=== PATIENT | male | born 1935 | race Caucasian/White ===

== ENCOUNTER 2016-11-18 19:35 | Inpatient (IN) | payer MEDICARE, OTHER ==
[~2016-11-18] VITALS: Ht 175.3 cm; Wt 106.4 kg
[2016-11-18] MEDS ORDERED: PLEASE ENTER ALLERGIES MC SCH ×2 (20:00)
[2016-11-18] MEDS ORDERED: SODIUM CHLORIDE 0.9% 1,000ML IVBOLUS ONE (20:00)
[2016-11-18] MEDS ORDERED: SODIUM CHLORIDE FLUSH 10ML SYR IVF ONE (20:00)
[2016-11-18] MEDS ORDERED: PLEASE ENTER HEIGHT AND WEIGHT MC SCH (20:00)
[2016-11-18] MEDS ORDERED: ONDANSETRON 2MG/ML, 2ML IVPush ONE (20:00)
[2016-11-18 20:02] LABS: HEMOGLOBIN 13.3 g/dL (13.7-18.0)
[2016-11-18 20:13] LABS: ASPARTATE AMINO TRANSFERASE 11 U/L (15-37); BLOOD UREA NITROGEN 27 mg/dL (7-18)
[2016-11-18 20:18] LABS: HEMATOCRIT 40.2 % (39.2-51.8)
[2016-11-18 20:21] LABS: IS PT STATUS REG ER OR PRE ER? YES
[2016-11-18] MEDS ORDERED: INSU100V5 SQ-INSULIN (20:31)
[2016-11-18] MEDS ORDERED: ASPI-515 PO (20:31)
[2016-11-18] MEDS ORDERED: CYAN500T42 PO (20:31)
[2016-11-18] MEDS ORDERED: METF-649 PO (20:31)
[2016-11-18] MEDS ORDERED: SIMV5TAB5 PO (20:31)
[2016-11-18] MEDS ORDERED: ONDANSETRON 2MG/ML, 2ML ONE (20:33)
[2016-11-18] MEDS ORDERED: OMNIPAQUE 350 MG/ML, 100ML BOTTLE ONE (21:00)
[2016-11-18] MEDS ORDERED: ONDANSETRON 2MG/ML, 2ML IVPush PRN (23:30)
[2016-11-18] MEDS ORDERED: DEXTROSE 4 GM TAB.CHEW PO PRN (23:30)
[2016-11-18] MEDS ORDERED: POLYETHYLENE GLYCOL 17 GM PACKET PO PRN (23:30)
[2016-11-18] MEDS ORDERED: ACETAMINOPHEN 325 MG TABLET PO PRN (23:30)
[2016-11-18] MEDS ORDERED: GLUCAGON 1 MG IM PRN (23:30)
[2016-11-18] MEDS ORDERED: BISACODYL 10 MG SUPP PR PRN (23:30)
[2016-11-18] MEDS ORDERED: DEXTROSE 50%, 50ML SYRINGE IVPush PRN (23:30)
[2016-11-19 00:29] VITALS: BP 155/81
[2016-11-19] MEDS: SODIUM CHLORIDE 0.9% 1,000 ML IV SCH ×2 (01:14→13:31)
[2016-11-19] MEDS: HEPARIN 5,000 UNITS/ML, 1ML SQ SCH ×3 (01:15→15:49)
[2016-11-19 06:39] LABS: HEMATOCRIT 38.2 % (39.2-51.8); HEMOGLOBIN 12.6 g/dL (13.7-18.0); WHITE BLOOD COUNT 12.1 x10^3/uL (3.4-10)
[2016-11-19 06:51] LABS: ASPARTATE AMINO TRANSFERASE 9 U/L (15-37); BLOOD UREA NITROGEN 24 mg/dL (7-18)
[2016-11-19 06:59] LABS: IS PT STATUS REG ER OR PRE ER? NO
[2016-11-19 07:43] VITALS: BP 167/92
[2016-11-19] MEDS: ASPIRIN 81 MG TABLET EC PO SCH (08:33)
[2016-11-19] MEDS: SENNA/DOCUSATE TABLET PO SCH (08:34)
[2016-11-19 08:39] VITALS: BP 165/87
[2016-11-19] MEDS ORDERED: SIMV80TA3 PO (08:54)
[2016-11-19] MEDS ORDERED: LISI1TAB5 PO (08:54)
[2016-11-19] MEDS ORDERED: INSU100C5 SQ-INSULIN (08:55)
[2016-11-19] MEDS ORDERED: SODIUM CHLORIDE FLUSH 10ML SYR IVF SCH (09:00)
[2016-11-19] MEDS ORDERED: SIMVASTATIN 5 MG TABLET PO SCH (09:00)
[2016-11-19] MEDS: ATENOLOL 50 MG TABLET PO SCH (10:59)
[2016-11-19] MEDS: LISINOPRIL 20 MG TABLET PO SCH (11:00)
[2016-11-19 11:03] VITALS: BP 122/68
[2016-11-19 13:08] LABS: IS PT STATUS REG ER OR PRE ER? NO
[2016-11-19] MEDS: INSULIN ASPART 100 UNITS/ML, PEN SQ-INSULIN SCH ×3 (13:31→21:22)
[2016-11-19 14:00] VITALS: BP 130/80
[2016-11-19] MEDS ORDERED: ALBUTEROL SULFATE 2.5 MG/3 ML ONE (16:09)
[2016-11-19] MEDS ORDERED: DEXTROSE 4 GM TAB.CHEW PO PRN (16:30)
[2016-11-19] MEDS ORDERED: GLUCAGON 1 MG IM PRN (16:30)
[2016-11-19] MEDS ORDERED: ACETAMINOPHEN 325 MG TABLET PO PRN (16:30)
[2016-11-19] MEDS ORDERED: DEXTROSE 50%, 50ML SYRINGE IVPush PRN (16:30)
[2016-11-19] MEDS ORDERED: BISACODYL 10 MG SUPP PR PRN (16:30)
[2016-11-19] MEDS ORDERED: ONDANSETRON 2MG/ML, 2ML IVPush PRN (16:30)
[2016-11-19] MEDS ORDERED: INSULIN DETEMIR 100 UNITS/ML, PEN SQ-INSULIN SCH (21:00)
[2016-11-19] MEDS: ATORVASTATIN 40 MG TABLET PO SCH (21:21)
[2016-11-19] MEDS: SODIUM CHLORIDE FLUSH 10ML SYR IVF SCH (21:22)
[2016-11-19 22:05] VITALS: BP 125/76
[2016-11-20 00:11] VITALS: BP 143/80
[2016-11-20] MEDS: HEPARIN 5,000 UNITS/ML, 1ML SQ SCH ×3 (00:12→16:39)
[2016-11-20 04:49] LABS: HEMATOCRIT 35.7 % (39.2-51.8); HEMOGLOBIN 11.7 g/dL (13.7-18.0); WHITE BLOOD COUNT 10.6 x10^3/uL (3.4-10)
[2016-11-20 05:08] LABS: ASPARTATE AMINO TRANSFERASE 7 U/L (15-37); BLOOD UREA NITROGEN 26 mg/dL (7-18)
[2016-11-20 08:30] VITALS: BP 116/78
[2016-11-20] MEDS: SODIUM CHLORIDE FLUSH 10ML SYR IVF SCH ×2 (09:00→21:00)
[2016-11-20] MEDS: SENNA/DOCUSATE TABLET PO SCH (09:00)
[2016-11-20] MEDS: ASPIRIN 81 MG TABLET EC PO SCH (09:17)
[2016-11-20] MEDS: ATENOLOL 50 MG TABLET PO SCH (09:17)
[2016-11-20] MEDS: LISINOPRIL 20 MG TABLET PO SCH (09:18)
[2016-11-20] MEDS: INSULIN ASPART 100 UNITS/ML, PEN SQ-INSULIN SCH ×4 (09:29→20:37)
[2016-11-20] MEDS: INSULIN DETEMIR 100 UNITS/ML, PEN SQ-INSULIN SCH ×2 (09:29→20:56)
[2016-11-20] MEDS ORDERED: FENTANYL PF 100 MCG/2ML ONE (13:23)
[2016-11-20] MEDS ORDERED: MIDAZOLAM 1 MG/ML, 5ML ONE (13:23)
[2016-11-20 13:25] VITALS: BP 123/75
[2016-11-20 20:28] VITALS: BP 107/69
[2016-11-20] MEDS: ATORVASTATIN 40 MG TABLET PO SCH (20:37)
[2016-11-21 00:29] VITALS: BP 112/70
[2016-11-21] MEDS: HEPARIN 5,000 UNITS/ML, 1ML SQ SCH ×4 (00:30→23:59)
[2016-11-21 05:10] LABS: HEMOGLOBIN 11.9 g/dL (13.7-18.0); WHITE BLOOD COUNT 9.4 x10^3/uL (3.4-10)
[2016-11-21 05:29] LABS: BLOOD UREA NITROGEN 28 mg/dL (7-18)
[2016-11-21 08:25] VITALS: BP 119/70
[2016-11-21] MEDS: ASPIRIN 81 MG TABLET EC PO SCH (08:28)
[2016-11-21] MEDS: LISINOPRIL 20 MG TABLET PO SCH (08:28)
[2016-11-21] MEDS: INSULIN DETEMIR 100 UNITS/ML, PEN SQ-INSULIN SCH ×2 (08:29→20:17)
[2016-11-21] MEDS: INSULIN ASPART 100 UNITS/ML, PEN SQ-INSULIN SCH ×4 (08:29→20:17)
[2016-11-21] MEDS: SODIUM CHLORIDE FLUSH 10ML SYR IVF SCH ×2 (08:29→20:17)
[2016-11-21] MEDS: SENNA/DOCUSATE TABLET PO SCH (08:30)
[2016-11-21] MEDS: ATENOLOL 50 MG TABLET PO SCH (08:30)
[2016-11-21 13:20] VITALS: BP 128/68
[2016-11-21] MEDS: ATORVASTATIN 40 MG TABLET PO SCH (20:17)
[2016-11-21 20:45] VITALS: BP 128/81
[2016-11-22 01:05] VITALS: BP 117/72
[2016-11-22] MEDS: ATENOLOL 50 MG TABLET PO SCH (06:00)
[2016-11-22] MEDS: HEPARIN 5,000 UNITS/ML, 1ML SQ SCH (07:30)
[2016-11-22 08:28] VITALS: BP 145/80
[2016-11-22] MEDS: SENNA/DOCUSATE TABLET PO SCH (09:00)
[2016-11-22] MEDS: LISINOPRIL 20 MG TABLET PO SCH (09:15)
[2016-11-22] MEDS: SODIUM CHLORIDE FLUSH 10ML SYR IVF SCH (09:15)
[2016-11-22] MEDS: ASPIRIN 81 MG TABLET EC PO SCH (09:15)
[2016-11-22] MEDS: INSULIN DETEMIR 100 UNITS/ML, PEN SQ-INSULIN SCH (09:16)
[2016-11-22] MEDS: INSULIN ASPART 100 UNITS/ML, PEN SQ-INSULIN SCH ×2 (09:16→11:00)
[2016-11-22] MEDS ORDERED: ASPI-650 PO (11:37)
[2016-11-22] MEDS ORDERED: INSU100V8 SQ (11:37)
[2016-11-22] MEDS ORDERED: LISI-170 PO (11:37)
== END 2016-11-22 13:00 | disposition home or self-care (01) | DRG 682 ==
LOC: ED 20:36 → EDIP 23:21 → 5SO 11-19 00:09 → 4EST 11-21 23:28 → DCLOUNGE 11-22 12:29
PROVIDERS: ADMIT Internal Medicine; ATTEND Internal Medicine
PROC: 0DJ08ZZ Inspection of Upper Intestinal Tract, Via Natural or Artificial Opening Endoscopic (ICD-10-PCS; principal; 2016-11-20 14:30)
DX: I12.9 Hypertensive chronic kidney disease with stage 1 through stage 4 chronic kidney disease, or unspecified chronic kidney disease (principal); J96.01 Acute respiratory failure with hypoxia; N17.9 Acute kidney failure, unspecified; E44.1 Mild protein-calorie malnutrition; E11.22 Type 2 diabetes mellitus with diabetic chronic kidney disease; E11.649 Type 2 diabetes mellitus with hypoglycemia without coma; E66.9 Obesity, unspecified; E86.0 Dehydration; E78.5 Hyperlipidemia, unspecified; D64.9 Anemia, unspecified; I65.23 Occlusion and stenosis of bilateral carotid arteries; J44.9 Chronic obstructive pulmonary disease, unspecified; K44.9 Diaphragmatic hernia without obstruction or gangrene; N18.3 Chronic kidney disease, stage 3 (moderate); Z66 Do not resuscitate; Z79.4 Long term (current) use of insulin; Z82.49 Family history of ischemic heart disease and other diseases of the circulatory system; Z80.9 Family history of malignant neoplasm, unspecified; Z85.118 Personal history of other malignant neoplasm of bronchus and lung; Z86.73 Personal history of transient ischemic attack (TIA), and cerebral infarction without residual deficits; Z87.891 Personal history of nicotine dependence; Z90.89 Acquired absence of other organs; Z68.34 Body mass index [BMI] 34.0-34.9, adult
CPT/HCPCS: 36415; 70450; 71010; 71275; 80048; 80053; 80061; 82962; 83036; 83735; 84484; 85025; 93005; 93308; 93321; 93325; 93880; 94640; 96361; 96374; 99152; 99153; J1644; J1815; J2250; J2405; J3010; Q9967; J7030

== ENCOUNTER 2018-11-03 15:36 | Emergency (ER) | payer MEDICARE, OTHER ==
[~2018-11-03] VITALS: Ht 177.8 cm; Wt 106.8 kg
[~2018-11-03 15:36] MED LIST: ASPI-515 PO; ASPI-650 PO; CYAN500T42 PO; INSU100C5 SQ-INSULIN; INSU100V5 SQ-INSULIN; INSU100V8 SQ; LISI-170 PO; LISI1TAB5 PO; METF-649 PO; SIMV5TAB14 PO; SIMV80TA18 PO
--- NOTE | 2018-11-03 15:55 | NUR ---
TASK RN: MARIA ANTONIA DEAN AFTER PT WAS "STARING OFF INTO SOACE FOR 4 MINUTES". NEAR SYNCOPAL EPISODE TODAY AT A BBQ W/ FAMILY AND FRIENDS. PT STATES HE THREW UP BUT DOES NOT REMEMBER EVENT. 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 VS TRAUMA PROGRAM MANAGER BS 214, BP 114/58, HR 90, 91% RA. MONITORS APPLIED. VS TAKEN. BED RAILS UP X 2. ERP DR. VASQUEZ AT BEDSIDE.
--- NOTE | 2018-11-03 16:26 | NUR ---
PT LYING QUIETLY ON GURNEY. CARDIAC & VS MONITORING CONTINUING. NSR. RESP EVEN & UNLABORED, SPEECH CLEAR, SKIN WNL. PT'S SPOUSE, JACKIE, IN ROOM. PT DENIES PAIN, LIGHTHEADEDNESS, DIZZINESS. IV 20G LT HAND.
[2018-11-03] MEDS ORDERED: WATER PILL (16:33)
[2018-11-03] MEDS ORDERED: ASPI-496 PO (16:33)
--- NOTE | 2018-11-03 16:33 | NUR ---
PT GETS HIS SCRIPTS FROM [facility].
[2018-11-03 16:56] LABS: BASOPHILS # (AUTO) 0.02 x10^3/uL (0-0.1); BASOPHILS % (AUTO) 0 % (0-1); EOSINOPHILS # (AUTO) 0.22 x10^3/uL (0-0.4); EOSINOPHILS % (AUTO) 2 % (1-7); LYMPHOCYTES # (AUTO) 1.32 x10^3/uL (1-3.4); LYMPHOCYTES % (AUTO) 13 % (22-44); MD NO; MEAN CORPUSCULAR HEMOGLOBIN 30.5 pg (27.5-34.5); MEAN CORPUSCULAR HGB CONC 32.4 g/dL (33.2-36.2); MEAN PLATELET VOLUME 8.3 fL (7.4-10.4); MONOCYTES # (AUTO) 0.69 x10^3/uL (0.2-0.8); MONOCYTES % (AUTO) 7 % (2-9); NEUTROPHILS % (AUTO) 78 % (42-75); PLATELET COUNT 226 x10^3/uL (130-400); RED BLOOD COUNT 4.43 x10^6/uL (4.38-5.82); RED CELL DISTRIBUTION WIDTH 13.6 % (9.4-14.8)
[2018-11-03 17:05] LABS: PROTHROMBIN TIME 10.5 Seconds (9.6-11.5)
[2018-11-03 17:07] LABS: ALANINE AMINOTRANSFERASE 19 U/L (12-78); ALBUMIN 3.3 g/dL (3.4-5.0); ANION GAP 9 mmol/L (5-15); CALCIUM 8.4 mg/dL (8.5-10.1); CHLORIDE 108 mmol/L (98-107); CREATININE 1.56 mg/dL (0.7-1.3)
[2018-11-03 17:11] LABS: ALKALINE PHOSPHATASE 60 U/L (45-117); BILIRUBIN,TOTAL 0.5 mg/dL (0.2-1.0); TOTAL PROTEIN 6.9 g/dL (6.4-8.2); TROPONIN I < 0.015 ng/mL (0.000-0.045)
[2018-11-03 17:55] VITALS: BP 143/69
--- NOTE | 2018-11-03 17:55 | NUR ---
TASK RN: DISCUSSED RISKS/BENEFITS OF ADMISSION. PT REFUSING ADMISSION. AMA SHEET SIGNED.
== END 2018-11-03 17:57 | disposition home or self-care (01) ==
LOC: ED 16:10
DX: R55 Syncope and collapse (principal); I10 Essential (primary) hypertension; E11.9 Type 2 diabetes mellitus without complications
CPT/HCPCS: 36415; 71045; 80053; 84484; 85025; 85610; 85730; 93005; 99284